=== PATIENT | male | born 1950 | race Caucasian/White ===

== ENCOUNTER 2022-01-23 09:50 | Day surgery (SDC) | payer OTHER ==
[~2022-01-23] VITALS: Ht 172.7 cm; Wt 79.8 kg
[~2022-01-23 09:50] MED LIST: ATACAND PO; ATACAND16 MG; CRESTOR10 MG PO; NEURONTIN300 MG PO; PERCOCET 5/3251 TAB PO; POLY119PG PO
[2022-01-23] MEDS ORDERED: PERCOCET 5-3251 EACH PO (12:59)
== END 2022-01-23 17:00 | disposition home or self-care (01) ==
LOC: CIR.AMB 09:50
PROVIDERS: ATTEND Surgery
DX: N52.01 Erectile dysfunction due to arterial insufficiency (principal); Z20.822 Contact with and (suspected) exposure to COVID-19; E78.5 Hyperlipidemia, unspecified; I10 Essential (primary) hypertension; Z85.46 Personal history of malignant neoplasm of prostate
CPT/HCPCS: 54405; C1813